=== PATIENT | female | born 1945 | race Caucasian/White ===

== ENCOUNTER 2018-10-22 13:07 | Emergency (ER) | payer MEDICARE, OTHER, SELFPAY ==
[~2018-10-22] VITALS: Ht 160 cm; Wt 45.1 kg
[2018-10-22 13:12] VITALS: BP 152/79
== END 2018-10-22 14:58 | disposition home or self-care (01) ==
LOC: ED 14:24
DX: L89.892 Pressure ulcer of other site, stage 2 (principal); F17.200 Nicotine dependence, unspecified, uncomplicated
CPT/HCPCS: 82962; 99283

== ENCOUNTER 2019-06-23 15:31 | Inpatient (IN) | payer MEDICARE ==
[~2019-06-23] VITALS: Ht 157.5 cm; Wt 46.3 kg
[2019-06-23 16:17] LABS: MEAN CORPUSCULAR HEMOGLOBIN 25.6 pg (27.0-34.8); MEAN CORPUSCULAR HGB CONC 32.5 g/dL (32.4-35.8); MEAN PLATELET VOLUME 7.7 fL (7.4-10.4); PLATELET COUNT 834 x10^3/uL (130-400); RED BLOOD COUNT 6.01 x10^6/uL (3.82-5.3); RED CELL DISTRIBUTION WIDTH 15.6 % (9.6-15.2)
[2019-06-23 16:28] LABS: ALBUMIN 3.3 g/dL (3.4-5.0); ANION GAP 5 mmol/L (5-15); CALCIUM 9.2 mg/dL (8.5-10.1); CHLORIDE 106 mmol/L (98-107)
[2019-06-23 16:29] LABS: CREATININE 0.74 mg/dL (0.55-1.02)
[2019-06-23 17:09] LABS: BASOPHILS # (AUTO) 0.05 x10^3/uL (0-0.1); BASOPHILS % (AUTO) 0 % (0-1); EOSINOPHILS # (AUTO) 0.31 x10^3/uL (0-0.4); EOSINOPHILS % (AUTO) 2 % (1-7); LYMPHOCYTES % (AUTO) 12 % (22-44); MD SCAN; MONOCYTES # (AUTO) 0.68 x10^3/uL (0.2-0.8); MONOCYTES % (AUTO) 4 % (2-9); NEUTROPHILS # (AUTO) 15.85 x10^3/uL (1.8-6.8); NEUTROPHILS % (AUTO) 83 % (42-75)
--- NOTE | 2019-06-23 18:54 | NUR ---
FROM LOBBY TO ROOM. MD TO BEDSIDE AT THIS TIME FOR ASSESSMENT
[2019-06-23 19:09] LABS: HCT (SEDRATE) 47.5 % (34.6-47.8)
--- NOTE | 2019-06-23 19:11 | NUR ---
BREAK RN: PT PRESENTING TO ER FOR SORE BLACK IN COLOR ON LEFT OUTER FOOT THAT HAS BEEN THERE FOR MONTHS PER PT. ATTEMPTED TO TREAT AT HOME WITH NEOSPORIN, NOW WOUND IS BLACK IN COLOR. PT STS HARD TO WALK ON BUT DOESNT HURT WHEN NOT BEING TOUCHED. CONNECTED TO MONITORING, VSS. PIT ORDERS COMPLETED. ADDITIONAL ORDERS RECEIVED FOR MRI AND LABS. FAMILY AT BEDSIDE. CALL [facility] [email or web address] RE[facility]. AWAITING TESTING AT THIS TIME
--- NOTE | 2019-06-23 19:21 | NUR ---
BREAK RN: IV PLACED FOR MRI
--- NOTE | 2019-06-23 19:42 | NUR ---
PT TO MRI PER CART. REMAINS IN ROOM.
--- NOTE | 2019-06-23 19:53 | NUR ---
UNABLE TO COMPLETE MRI, PATIENT COULD NOT HOLD STILL. PT REQUESTING TO GO HOME. RN INFORMED HER THAT SHE HAS THE RIGHT TO MAKE ANY HEALTH CARE DECISION SHE WANTS, BUT TO PLEASE SPEAK TO THE DOCTOR BEFORE SHE MAKES UP HER MIND. PT WILL SPEAK TO THE DOCTOR.
[2019-06-23] MEDS ORDERED: LORazepam 2 MG/ML, 1ML ONE (19:57)
[2019-06-23] MEDS ORDERED: LORazepam 2 MG/ML, 1ML IVPush ONE (20:00)
--- NOTE | 2019-06-23 21:14 | NUR ---
PLANNING ENGINEER HERE TO TAKE PATIENT TO MRI FOR SCAN. PT MOVING AROUND IN BED. TECH INFORMED RN THAT SHE HAS ONE CHANCE, AND IF THE PATIENT CAN'T HOLD STILL, SHE WILL CANCEL THE TEST AND SHE IS GOING HOME. RN INFORMED PLANNING ENGINEER THAT ADDITIONAL ATIVAN CAN BE GIVEN TO HELP PATIENT RELAX. IV MEDICATIONS ADMINISTERED BY MARGARITA ESPINOSA. PT INSTRUCTED THAT SHE NEEDS TO HOLD STILL FOR THIS TEST, SO CORRECT DIAGNOSIS CAN BE MADE REGARDING HER FOOT. NOT AT BEDSIDE, HE HAS LEFT TO GET SOME FOOD.
--- NOTE | 2019-06-23 21:23 | NUR ---
PT RETURNED FROM MRI. UNABLE TO PERFORM TEST DUE TO PATIENT INABILITY TO REMAIN STILL AND FOLLOW INSTRUCTIONS. PT UNABLE TO FOLLOW THOUGHT PROCESS AND ANSWER QUESTIONS APPROPRIATELY, UNKNOWN IF THIS IS DUE TO MEDICATION, OR IF THIS IS PATIENT NORM. PT WILL ANSWER QUESTIONS APPROPRIATELY AT TIMES, BUT NOW THAT IS NOT HERE TO SPEAK FOR PATIENT, IT IS UNKNOWN PATIENT'S TRUE BASELINE. INFORMED OF INABILITY TO PERFORM TEST, ORDER FOR HALDOL AND ATTEMPT MRI A 3RD TIME. MARGARITA ESPINOSA RUNNING OVER TO MRI TO INFORM MOTOR VEHICLE TECHNICIAN TECH ABOUT MD NEW ORDER.
[2019-06-23] MEDS ORDERED: HALOPERIDOL 5 MG/ML ONE ×2 (21:28→21:34)
[2019-06-23] MEDS ORDERED: HALOPERIDOL 5 MG/ML IV ONE (21:30)
[2019-06-23] MEDS ORDERED: VANCOMYCIN PER PHARMACY MC PRN ×2 (22:00→23:00)
[2019-06-23] MEDS ORDERED: VANCOMYCIN 900 MG in SODIUM CHLORIDE 0.9% 100 ML IV ONE (22:00)
[2019-06-23] MEDS ORDERED: AMPICILLIN/SULBACTAM 3 GM in SODIUM CHLORIDE 0.9% 100 ML IV ONE (22:00)
--- NOTE | 2019-06-23 22:00 | NUR ---
REPORT RECEIVED FROM JESÚS GONZÁLES AND JESÚS AVILA. ASSUMED CARE OF PT. PT RESTING ON GURNEY, CONFUSED. ABLE TO FOLLOW SIMPLE COMMANDS. ALL VITALS STABLE. REPORT BEING CALLED AT THIS TIME. WILL CONTINUE TO MONITOR.
--- NOTE | 2019-06-23 22:07 | NUR ---
PT SITTING ON EDGE OF BED, BLEEDING FROM IV SITE, PATIENT HAS PULLED OUT IV AND REMOVED ALL MONITORING EQUIPMENT. MONITORING EQUIPMENT REPLACED, IV REPLACED AND IV HALDOL GIVEN. REPORT TO ARELY ESPINOSA ON FLOOR, PT DISCHARGED TO FLOOR PER TECH. AT PATIENT BEDSIDE.
[2019-06-23 22:47] VITALS: BP 187/84
[2019-06-23] MEDS ORDERED: MULT-658 PO (22:47)
[2019-06-23] MEDS ORDERED: POLYETHYLENE GLYCOL 17 GM PACKET PO PRN (23:00)
[2019-06-23] MEDS ORDERED: ONDANSETRON ODT 4 MG PO PRN (23:00)
[2019-06-23] MEDS ORDERED: BISACODYL 10 MG SUPP PR PRN (23:00)
[2019-06-23] MEDS ORDERED: MULTIVITAMIN 1 TABLET PO SCH (23:00)
[2019-06-23] MEDS ORDERED: PHARMACOKINETIC CONSULTATION MC ONE (23:30)
[2019-06-23] MEDS ORDERED: PHARMACOKINETIC MONITORING MC PRN (23:30)
[2019-06-24 00:18] VITALS: BP 187/91
[2019-06-24] MEDS: HEPARIN 5,000 UNITS/ML, 1ML SQ SCH ×3 (00:28→16:54)
[2019-06-24] MEDS: ACETAMINOPHEN 325 MG TABLET PO PRN ×2 (00:28→21:45)
[2019-06-24] MEDS: HALOPERIDOL 5 MG TABLET PO PRN ×4 (00:28→22:03)
[2019-06-24] MEDS: NICOTINE 7 MG/24 HR PATCH.TD24 TD SCH ×2 (00:29→22:04)
[2019-06-24 01:24] VITALS: BP 162/84
[2019-06-24] MEDS: AMPICILLIN/SULBACTAM 3 GM in SODIUM CHLORIDE 0.9% 100 ML IV SCH ×2 (01:40→08:00)
[2019-06-24] MEDS: NS + 20MEQ KCL 1,000 ML IV SCH ×3 (02:44→21:36)
[2019-06-24 05:57] LABS: BASOPHILS # (AUTO) 0.15 x10^3/uL (0-0.1); BASOPHILS % (AUTO) 1 % (0-1); EOSINOPHILS # (AUTO) 0.35 x10^3/uL (0-0.4); EOSINOPHILS % (AUTO) 2 % (1-7); LYMPHOCYTES # (AUTO) 2.39 x10^3/uL (1-3.4); LYMPHOCYTES % (AUTO) 16 % (22-44); MD NO; MEAN CORPUSCULAR HEMOGLOBIN 25.4 pg (27.0-34.8); MEAN CORPUSCULAR HGB CONC 32.7 g/dL (32.4-35.8); MEAN CORPUSCULAR VOLUME 77.8 fL (80-100); MEAN PLATELET VOLUME 7.7 fL (7.4-10.4); MONOCYTES # (AUTO) 0.82 x10^3/uL (0.2-0.8); MONOCYTES % (AUTO) 6 % (2-9); NEUTROPHILS # (AUTO) 11.27 x10^3/uL (1.8-6.8); NEUTROPHILS % (AUTO) 75 % (42-75); PLATELET COUNT 642 x10^3/uL (130-400); RED BLOOD COUNT 5.85 x10^6/uL (3.82-5.3); RED CELL DISTRIBUTION WIDTH 15.7 % (9.6-15.2)
[2019-06-24 06:10] LABS: ANION GAP 5 mmol/L (5-15); CALCIUM 8.7 mg/dL (8.5-10.1); CHLORIDE 111 mmol/L (98-107); CREATININE 0.52 mg/dL (0.55-1.02)
[2019-06-24 07:44] VITALS: BP 175/94
[2019-06-24] MEDS: LISINOPRIL 10 MG TABLET PO SCH ×2 (08:01→21:36)
[2019-06-24] MEDS: SENNA/DOCUSATE TABLET PO SCH (08:01)
[2019-06-24 08:51] VITALS: BP 167/83
[2019-06-24] MEDS ORDERED: NICOTINE 14MG/24 HR PATCH.TD24 TD ONE (12:30)
[2019-06-24 15:50] VITALS: BP 171/77
[2019-06-24] MEDS: PIPERACILLIN/TAZO/PMX 3.375GM 50 ML IV SCH ×2 (16:54→22:02)
[2019-06-24] MEDS: VANCOMYCIN 800 MG in SODIUM CHLORIDE 0.9% 100 ML IV SCH (16:54)
[2019-06-24 19:14] VITALS: BP 166/95
[2019-06-25] MEDS: HEPARIN 5,000 UNITS/ML, 1ML SQ SCH ×3 (00:42→17:29)
[2019-06-25 02:00] VITALS: BP 138/74
[2019-06-25] MEDS: PIPERACILLIN/TAZO/PMX 3.375GM 50 ML IV SCH ×4 (02:38→21:21)
[2019-06-25 05:31] LABS: BASOPHILS % (AUTO) 1 % (0-1); EOSINOPHILS # (AUTO) 0.23 x10^3/uL (0-0.4); EOSINOPHILS % (AUTO) 2 % (1-7); LYMPHOCYTES # (AUTO) 1.64 x10^3/uL (1-3.4); LYMPHOCYTES % (AUTO) 11 % (22-44); MD NO; MEAN CORPUSCULAR HEMOGLOBIN 25.5 pg (27.0-34.8); MEAN CORPUSCULAR HGB CONC 32.7 g/dL (32.4-35.8); MEAN PLATELET VOLUME 8.4 fL (7.4-10.4); MONOCYTES # (AUTO) 0.66 x10^3/uL (0.2-0.8); MONOCYTES % (AUTO) 5 % (2-9); NEUTROPHILS % (AUTO) 82 % (42-75); PLATELET COUNT 765 x10^3/uL (130-400); RED BLOOD COUNT 5.82 x10^6/uL (3.82-5.3); RED CELL DISTRIBUTION WIDTH 15.6 % (9.6-15.2)
[2019-06-25] MEDS: NS + 20MEQ KCL 1,000 ML IV SCH (05:33)
[2019-06-25 05:47] LABS: ANION GAP 5 mmol/L (5-15); CHLORIDE 109 mmol/L (98-107)
[2019-06-25] MEDS: ACETAMINOPHEN 325 MG TABLET PO PRN ×2 (08:15→20:49)
[2019-06-25] MEDS: SENNA/DOCUSATE TABLET PO SCH (08:15)
[2019-06-25 08:16] VITALS: BP 180/84
[2019-06-25] MEDS: LISINOPRIL 10 MG TABLET PO SCH ×2 (08:16→20:49)
[2019-06-25 10:00] VITALS: BP 163/92
[2019-06-25 14:59] VITALS: BP 149/82
[2019-06-25] MEDS: VANCOMYCIN 800 MG in SODIUM CHLORIDE 0.9% 100 ML IV SCH (17:41)
[2019-06-25 20:33] VITALS: BP 179/99
[2019-06-25] MEDS: HALOPERIDOL 5 MG TABLET PO PRN (20:49)
[2019-06-25] MEDS: hydrALAzine 20 MG/ML, 1ML IVPush PRN (21:21)
[2019-06-25 23:00] VITALS: BP 170/81
[2019-06-26] MEDS: PIPERACILLIN/TAZO/PMX 3.375GM 50 ML IV SCH ×2 (04:01→10:33)
[2019-06-26 06:00] LABS: BASOPHILS # (AUTO) 0.21 x10^3/uL (0-0.1); BASOPHILS % (AUTO) 1 % (0-1); EOSINOPHILS # (AUTO) 0.25 x10^3/uL (0-0.4); EOSINOPHILS % (AUTO) 2 % (1-7); LYMPHOCYTES # (AUTO) 1.56 x10^3/uL (1-3.4); LYMPHOCYTES % (AUTO) 11 % (22-44); MD NO; MEAN CORPUSCULAR HEMOGLOBIN 25.7 pg (27.0-34.8); MEAN CORPUSCULAR HGB CONC 33.2 g/dL (32.4-35.8); MEAN CORPUSCULAR VOLUME 77.3 fL (80-100); MEAN PLATELET VOLUME 7.9 fL (7.4-10.4); MONOCYTES # (AUTO) 0.51 x10^3/uL (0.2-0.8); MONOCYTES % (AUTO) 4 % (2-9); NEUTROPHILS # (AUTO) 12.21 x10^3/uL (1.8-6.8); NEUTROPHILS % (AUTO) 83 % (42-75); PLATELET COUNT 789 x10^3/uL (130-400); RED BLOOD COUNT 5.78 x10^6/uL (3.82-5.3); RED CELL DISTRIBUTION WIDTH 15.7 % (9.6-15.2)
[2019-06-26 06:12] LABS: ANION GAP 6 mmol/L (5-15); CALCIUM 8.9 mg/dL (8.5-10.1); CHLORIDE 108 mmol/L (98-107)
[2019-06-26 06:13] LABS: CREATININE 0.64 mg/dL (0.55-1.02)
[2019-06-26] MEDS: HEPARIN 5,000 UNITS/ML, 1ML SQ SCH ×3 (08:00→16:00)
[2019-06-26] MEDS: ACETAMINOPHEN 325 MG TABLET PO PRN ×2 (08:49→20:26)
[2019-06-26] MEDS: LISINOPRIL 10 MG TABLET PO SCH ×2 (08:50→20:26)
[2019-06-26] MEDS: SENNA/DOCUSATE TABLET PO SCH (08:50)
[2019-06-26 08:53] VITALS: BP 144/82
[2019-06-26] MEDS ORDERED: POTASSIUM CHLORIDE 10% 40 MEQ/30 ML UDC PO ONE (15:30)
[2019-06-26 15:51] VITALS: BP 122/78
[2019-06-26] MEDS: CEFTRIAXONE PMX 1GM/50ML 50 ML IV SCH (16:21)
[2019-06-26] MEDS: HALOPERIDOL 5 MG TABLET PO PRN (18:28)
[2019-06-26] MEDS ORDERED: GADOTERATE 7.5 MMOL/15 ML SYR ONE (19:14)
[2019-06-26 19:43] VITALS: BP 156/86
[2019-06-26] MEDS: KETOROLAC 30 MG/1 ML IVPush PRN (21:25)
[2019-06-26] MEDS: NICOTINE 7 MG/24 HR PATCH.TD24 TD SCH ×2 (23:00)
[2019-06-27 01:11] VITALS: BP 152/79
[2019-06-27 05:48] LABS: BASOPHILS # (AUTO) 0.17 x10^3/uL (0-0.1); BASOPHILS % (AUTO) 1 % (0-1); EOSINOPHILS # (AUTO) 0.42 x10^3/uL (0-0.4); EOSINOPHILS % (AUTO) 3 % (1-7); LYMPHOCYTES # (AUTO) 2.17 x10^3/uL (1-3.4); LYMPHOCYTES % (AUTO) 13 % (22-44); MD NO; MEAN CORPUSCULAR HEMOGLOBIN 25.7 pg (27.0-34.8); MEAN CORPUSCULAR HGB CONC 32.9 g/dL (32.4-35.8); MEAN PLATELET VOLUME 7.7 fL (7.4-10.4); MONOCYTES # (AUTO) 0.74 x10^3/uL (0.2-0.8); MONOCYTES % (AUTO) 4 % (2-9); NEUTROPHILS # (AUTO) 13.16 x10^3/uL (1.8-6.8); NEUTROPHILS % (AUTO) 79 % (42-75); PLATELET COUNT 879 x10^3/uL (130-400); RED BLOOD COUNT 5.59 x10^6/uL (3.82-5.3); RED CELL DISTRIBUTION WIDTH 15.7 % (9.6-15.2)
[2019-06-27 06:00] LABS: ANION GAP 6 mmol/L (5-15); CALCIUM 8.8 mg/dL (8.5-10.1); CHLORIDE 108 mmol/L (98-107); CREATININE 0.62 mg/dL (0.55-1.02)
[2019-06-27] MEDS: HEPARIN 5,000 UNITS/ML, 1ML SQ SCH ×3 (08:00→17:27)
[2019-06-27 09:11] VITALS: BP 138/80
[2019-06-27] MEDS: SENNA/DOCUSATE TABLET PO SCH (09:28)
[2019-06-27] MEDS: LISINOPRIL 10 MG TABLET PO SCH ×2 (09:28→21:31)
[2019-06-27] MEDS: ASPIRIN 81 MG TABLET CHEW PO SCH (09:28)
[2019-06-27 14:24] VITALS: BP 152/77
[2019-06-27] MEDS: KETOROLAC 30 MG/1 ML IVPush PRN (15:25)
[2019-06-27] MEDS: CEFTRIAXONE PMX 1GM/50ML 50 ML IV SCH (15:25)
[2019-06-27 19:11] VITALS: BP 151/85
[2019-06-27] MEDS ORDERED: CEFAZOLIN 2,000 MG in SODIUM CHLORIDE 0.9% 50 ML IV SCH (21:00)
[2019-06-27] MEDS: CEFAZOLIN PMX 2GM/50ML 50 ML IVPB SCH (21:30)
[2019-06-27] MEDS: metroNIDAZOLE 500 MG TABLET PO SCH (21:31)
[2019-06-27] MEDS: NICOTINE 7 MG/24 HR PATCH.TD24 TD SCH (23:00)
[2019-06-28 01:50] VITALS: BP 155/106
[2019-06-28] MEDS: KETOROLAC 30 MG/1 ML IVPush PRN ×3 (02:06→16:44)
[2019-06-28] MEDS: hydrALAzine 20 MG/ML, 1ML IVPush PRN (02:06)
[2019-06-28] MEDS: metroNIDAZOLE 500 MG TABLET PO SCH ×3 (04:40→20:59)
[2019-06-28] MEDS: CEFAZOLIN PMX 2GM/50ML 50 ML IVPB SCH ×3 (04:41→20:59)
[2019-06-28 06:46] LABS: CHOL/HDL RATIO 5.7; LDL/HDL RATIO 3.9 (0.5-3.0)
[2019-06-28 06:58] VITALS: BP 147/83
[2019-06-28] MEDS ORDERED: POTASSIUM CHLORIDE 20 MEQ PACKET PO ONE (09:00)
[2019-06-28] MEDS: HEPARIN 5,000 UNITS/ML, 1ML SQ SCH ×3 (09:02→16:44)
[2019-06-28] MEDS: ASPIRIN 81 MG TABLET CHEW PO SCH (09:02)
[2019-06-28] MEDS: LISINOPRIL 10 MG TABLET PO SCH ×2 (09:02→20:59)
[2019-06-28] MEDS: SENNA/DOCUSATE TABLET PO SCH (09:03)
[2019-06-28 12:41] VITALS: BP 158/78
[2019-06-28 19:09] VITALS: BP 151/77
[2019-06-28] MEDS: NICOTINE 7 MG/24 HR PATCH.TD24 TD SCH (22:18)
[2019-06-29] MEDS: HALOPERIDOL 5 MG TABLET PO PRN ×3 (00:19→22:43)
[2019-06-29] MEDS: KETOROLAC 30 MG/1 ML IVPush PRN ×4 (00:19→22:43)
[2019-06-29 00:58] VITALS: BP 158/83
[2019-06-29] MEDS: metroNIDAZOLE 500 MG TABLET PO SCH ×3 (04:33→20:52)
[2019-06-29] MEDS: CEFAZOLIN PMX 2GM/50ML 50 ML IVPB SCH ×3 (04:34→20:52)
[2019-06-29] MEDS ORDERED: OMNIPAQUE 350 MG/ML, 100ML BOTTLE ONE (05:57)
[2019-06-29 06:01] LABS: BASOPHILS # (AUTO) 0.06 x10^3/uL (0-0.1); BASOPHILS % (AUTO) 0 % (0-1); EOSINOPHILS # (AUTO) 0.31 x10^3/uL (0-0.4); EOSINOPHILS % (AUTO) 2 % (1-7); LYMPHOCYTES # (AUTO) 2.71 x10^3/uL (1-3.4); LYMPHOCYTES % (AUTO) 19 % (22-44); MD NO; MEAN CORPUSCULAR HEMOGLOBIN 25.5 pg (27.0-34.8); MEAN CORPUSCULAR HGB CONC 32.8 g/dL (32.4-35.8); MEAN CORPUSCULAR VOLUME 77.9 fL (80-100); MONOCYTES # (AUTO) 0.61 x10^3/uL (0.2-0.8); MONOCYTES % (AUTO) 4 % (2-9); NEUTROPHILS # (AUTO) 10.95 x10^3/uL (1.8-6.8); NEUTROPHILS % (AUTO) 75 % (42-75); PLATELET COUNT 928 x10^3/uL (130-400); RED CELL DISTRIBUTION WIDTH 15.6 % (9.6-15.2)
[2019-06-29 06:08] LABS: ALANINE AMINOTRANSFERASE 27 U/L (12-78); ALBUMIN 2.6 g/dL (3.4-5.0); ANION GAP 6 mmol/L (5-15); CALCIUM 8.9 mg/dL (8.5-10.1); CHLORIDE 108 mmol/L (98-107)
[2019-06-29 06:17] LABS: ALKALINE PHOSPHATASE 87 U/L (45-117); BILIRUBIN,TOTAL 0.3 mg/dL (0.2-1.0); CREATININE 0.73 mg/dL (0.55-1.02); TOTAL PROTEIN 6.6 g/dL (6.4-8.2)
[2019-06-29 06:30] LABS: HCT (SEDRATE) 42.8 % (34.6-47.8)
[2019-06-29 07:42] VITALS: BP 143/74
[2019-06-29] MEDS: SENNA/DOCUSATE TABLET PO SCH (10:16)
[2019-06-29] MEDS: ASPIRIN 81 MG TABLET CHEW PO SCH (10:16)
[2019-06-29] MEDS: HEPARIN 5,000 UNITS/ML, 1ML SQ SCH ×3 (10:16→16:00)
[2019-06-29] MEDS: LISINOPRIL 10 MG TABLET PO SCH (10:17)
[2019-06-29] MEDS ORDERED: FLUMAZENIL 0.1 MG/1 ML, 5ML ONE (11:37)
[2019-06-29] MEDS ORDERED: MIDAZOLAM 1 MG/ML, 5ML ONE (11:37)
[2019-06-29] MEDS ORDERED: FENTANYL PF 100 MCG/2ML ONE ×2 (11:37)
[2019-06-29] MEDS ORDERED: NALOXONE 1 MG/ML, 2ML ONE (11:38)
[2019-06-29] MEDS ORDERED: NITROGLYCERIN 5 MG/ML, 10ML ONE (11:38)
[2019-06-29] MEDS ORDERED: HEPARIN 1,000 UNITS/ML, 10ML ONE (11:38)
[2019-06-29] MEDS ORDERED: PROTAMINE SULFATE 10 MG/ML, 25ML ONE (11:39)
[2019-06-29] MEDS ORDERED: LIDOCAINE 1%, 10ML ONE (11:59)
[2019-06-29] MEDS ORDERED: hydrALAzine 20 MG/ML, 1ML ONE (12:49)
[2019-06-29 13:43] VITALS: BP 171/75
[2019-06-29 19:43] VITALS: BP 164/75
[2019-06-29] MEDS: LISINOPRIL 20 MG TABLET PO SCH (20:52)
[2019-06-29] MEDS: NICOTINE 7 MG/24 HR PATCH.TD24 TD SCH (22:51)
[2019-06-30 00:23] VITALS: BP 152/61
[2019-06-30] MEDS: metroNIDAZOLE 500 MG TABLET PO SCH ×3 (04:37→20:22)
[2019-06-30] MEDS: CEFAZOLIN PMX 2GM/50ML 50 ML IVPB SCH ×3 (04:37→20:22)
[2019-06-30] MEDS: HALOPERIDOL 5 MG TABLET PO PRN ×2 (05:47→22:57)
[2019-06-30] MEDS: KETOROLAC 30 MG/1 ML IVPush PRN ×2 (05:48→16:42)
[2019-06-30] MEDS: HEPARIN 5,000 UNITS/ML, 1ML SQ SCH ×4 (08:29→22:56)
[2019-06-30] MEDS: AMLODIPINE 10 MG TAB PO SCH (08:29)
[2019-06-30] MEDS: ASPIRIN 81 MG TABLET CHEW PO SCH (08:29)
[2019-06-30] MEDS: SENNA/DOCUSATE TABLET PO SCH (08:30)
[2019-06-30] MEDS: LISINOPRIL 20 MG TABLET PO SCH ×2 (08:30→20:22)
[2019-06-30 09:01] VITALS: BP 149/86
[2019-06-30] MEDS: ACETAMINOPHEN 325 MG TABLET PO PRN (09:05)
[2019-06-30 09:09] LABS: MEAN CORPUSCULAR HEMOGLOBIN 25.9 pg (27.0-34.8); MEAN CORPUSCULAR HGB CONC 32.8 g/dL (32.4-35.8); MEAN CORPUSCULAR VOLUME 78.9 fL (80-100); RED BLOOD COUNT 5.55 x10^6/uL (3.82-5.3); RED CELL DISTRIBUTION WIDTH 15.3 % (9.6-15.2)
[2019-06-30 09:12] LABS: ANION GAP 9 mmol/L (5-15); CHLORIDE 104 mmol/L (98-107); CREATININE 0.69 mg/dL (0.55-1.02)
[2019-06-30 09:34] LABS: BASOPHILS # (AUTO) 0.08 x10^3/uL (0-0.1); BASOPHILS % (AUTO) 0 % (0-1); EOSINOPHILS # (AUTO) 0.19 x10^3/uL (0-0.4); EOSINOPHILS % (AUTO) 1 % (1-7); LYMPHOCYTES # (AUTO) 1.99 x10^3/uL (1-3.4); LYMPHOCYTES % (AUTO) 11 % (22-44); MD SCAN; MEAN PLATELET VOLUME 7.7 fL (7.4-10.4); MONOCYTES # (AUTO) 0.72 x10^3/uL (0.2-0.8); MONOCYTES % (AUTO) 4 % (2-9); NEUTROPHILS # (AUTO) 15.89 x10^3/uL (1.8-6.8); NEUTROPHILS % (AUTO) 84 % (42-75)
[2019-06-30 09:39] LABS: PLATELET COUNT 1110 x10^3/uL (130-400)
[2019-06-30] MEDS ORDERED: POTASSIUM CHLORIDE 20 MEQ TAB.ER.PRT PO ONE (10:00)
[2019-06-30 14:35] VITALS: BP 115/67
[2019-06-30 18:56] VITALS: BP 154/82
[2019-06-30] MEDS: NICOTINE 7 MG/24 HR PATCH.TD24 TD SCH (22:57)
[2019-07-01 01:30] VITALS: BP 155/83
[2019-07-01] MEDS: metroNIDAZOLE 500 MG TABLET PO SCH ×3 (05:35→20:33)
[2019-07-01] MEDS: CEFAZOLIN PMX 2GM/50ML 50 ML IVPB SCH ×3 (05:35→21:14)
[2019-07-01] MEDS: HALOPERIDOL 5 MG TABLET PO PRN (05:35)
[2019-07-01 06:53] LABS: MEAN CORPUSCULAR HEMOGLOBIN 25.6 pg (27.0-34.8); MEAN CORPUSCULAR HGB CONC 32.7 g/dL (32.4-35.8); MEAN CORPUSCULAR VOLUME 78.3 fL (80-100); MEAN PLATELET VOLUME 7.6 fL (7.4-10.4); RED BLOOD COUNT 5.32 x10^6/uL (3.82-5.3); RED CELL DISTRIBUTION WIDTH 15.5 % (9.6-15.2)
[2019-07-01 07:01] LABS: PLATELET COUNT 1059 x10^3/uL (130-400)
[2019-07-01 07:05] LABS: CHLORIDE 105 mmol/L (98-107)
[2019-07-01 07:06] LABS: ANION GAP 7 mmol/L (5-15); CALCIUM 8.9 mg/dL (8.5-10.1); CREATININE 0.71 mg/dL (0.55-1.02)
[2019-07-01 07:20] LABS: BASOPHILS # (AUTO) 0.23 x10^3/uL (0-0.1); BASOPHILS % (AUTO) 1 % (0-1); EOSINOPHILS # (AUTO) 0.28 x10^3/uL (0-0.4); EOSINOPHILS % (AUTO) 2 % (1-7); LYMPHOCYTES # (AUTO) 1.65 x10^3/uL (1-3.4); LYMPHOCYTES % (AUTO) 10 % (22-44); MD SCAN; MONOCYTES # (AUTO) 0.54 x10^3/uL (0.2-0.8); MONOCYTES % (AUTO) 3 % (2-9); NEUTROPHILS # (AUTO) 13.65 x10^3/uL (1.8-6.8); NEUTROPHILS % (AUTO) 84 % (42-75)
[2019-07-01 07:40] VITALS: BP 150/76
[2019-07-01] MEDS: HEPARIN 5,000 UNITS/ML, 1ML SQ SCH ×3 (08:00→23:45)
[2019-07-01] MEDS: LISINOPRIL 20 MG TABLET PO SCH ×2 (09:11→20:33)
[2019-07-01] MEDS: AMLODIPINE 10 MG TAB PO SCH (09:11)
[2019-07-01] MEDS: SENNA/DOCUSATE TABLET PO SCH (09:11)
[2019-07-01] MEDS: ASPIRIN 81 MG TABLET CHEW PO SCH (09:17)
[2019-07-01 09:33] LABS: MEAN CORPUSCULAR HEMOGLOBIN 25.9 pg (27.0-34.8); MEAN CORPUSCULAR HGB CONC 33.2 g/dL (32.4-35.8); MEAN PLATELET VOLUME 7.5 fL (7.4-10.4); RED BLOOD COUNT 5.17 x10^6/uL (3.82-5.3); RED CELL DISTRIBUTION WIDTH 15.8 % (9.6-15.2)
[2019-07-01 09:37] LABS: PLATELET COUNT 1205 x10^3/uL (130-400)
[2019-07-01 10:24] LABS: BASOPHILS # (AUTO) 0.06 x10^3/uL (0-0.1); BASOPHILS % (AUTO) 0 % (0-1); EOSINOPHILS # (AUTO) 0.27 x10^3/uL (0-0.4); EOSINOPHILS % (AUTO) 1 % (1-7); LYMPHOCYTES % (AUTO) 12 % (22-44); MD SCAN; MONOCYTES % (AUTO) 4 % (2-9); NEUTROPHILS # (AUTO) 15.72 x10^3/uL (1.8-6.8); NEUTROPHILS % (AUTO) 83 % (42-75)
[2019-07-01 12:19] VITALS: BP 137/77
[2019-07-01] MEDS: ACETAMINOPHEN 325 MG TABLET PO PRN (16:03)
[2019-07-01] MEDS ORDERED: OXYcodone IR 5MG TABLET ONE (18:11)
[2019-07-01] MEDS: OXYcodone IR 5MG TABLET PO PRN (18:14)
[2019-07-01 19:28] VITALS: BP 145/81
[2019-07-01] MEDS: NICOTINE 7 MG/24 HR PATCH.TD24 TD SCH (23:46)
[2019-07-02] MEDS: OXYcodone IR 5MG TABLET PO PRN ×2 (00:03→21:02)
[2019-07-02 02:26] VITALS: BP 155/81
[2019-07-02] MEDS: metroNIDAZOLE 500 MG TABLET PO SCH ×3 (04:39→20:51)
[2019-07-02] MEDS: HALOPERIDOL 5 MG TABLET PO PRN (04:39)
[2019-07-02] MEDS: ACETAMINOPHEN 325 MG TABLET PO PRN (04:40)
[2019-07-02] MEDS: CEFAZOLIN PMX 2GM/50ML 50 ML IVPB SCH ×3 (04:45→23:19)
[2019-07-02 06:00] LABS: ANION GAP 7 mmol/L (5-15); CALCIUM 8.8 mg/dL (8.5-10.1); CHLORIDE 103 mmol/L (98-107)
[2019-07-02 06:01] LABS: CREATININE 0.62 mg/dL (0.55-1.02)
[2019-07-02 06:03] LABS: MEAN CORPUSCULAR HEMOGLOBIN 25.7 pg (27.0-34.8); MEAN CORPUSCULAR HGB CONC 32.6 g/dL (32.4-35.8); MEAN CORPUSCULAR VOLUME 78.8 fL (80-100); MEAN PLATELET VOLUME 7.8 fL (7.4-10.4); RED BLOOD COUNT 5.24 x10^6/uL (3.82-5.3); RED CELL DISTRIBUTION WIDTH 15.7 % (9.6-15.2)
[2019-07-02 06:05] LABS: PLATELET COUNT 1101 x10^3/uL (130-400)
[2019-07-02 07:02] LABS: BASOPHILS # (AUTO) 0.05 x10^3/uL (0-0.1); BASOPHILS % (AUTO) 0 % (0-1); EOSINOPHILS # (AUTO) 0.38 x10^3/uL (0-0.4); EOSINOPHILS % (AUTO) 2 % (1-7); LYMPHOCYTES # (AUTO) 2.17 x10^3/uL (1-3.4); LYMPHOCYTES % (AUTO) 12 % (22-44); MD SCAN; MONOCYTES % (AUTO) 5 % (2-9); NEUTROPHILS # (AUTO) 14.31 x10^3/uL (1.8-6.8); NEUTROPHILS % (AUTO) 81 % (42-75)
[2019-07-02 07:55] VITALS: BP 139/75
[2019-07-02] MEDS ORDERED: LABETALOL 200 MG TABLET ONE ×3 (08:49→16:39)
[2019-07-02] MEDS: SENNA/DOCUSATE TABLET PO SCH (08:56)
[2019-07-02] MEDS: AMLODIPINE 10 MG TAB PO SCH (08:56)
[2019-07-02] MEDS: HEPARIN 5,000 UNITS/ML, 1ML SQ SCH ×2 (08:56→16:45)
[2019-07-02] MEDS: ASPIRIN 81 MG TABLET CHEW PO SCH (08:56)
[2019-07-02] MEDS: LISINOPRIL 20 MG TABLET PO SCH ×2 (08:56→20:52)
[2019-07-02] MEDS: LABETALOL 100 MG TABLET PO SCH ×2 (08:57→16:46)
[2019-07-02 16:44] VITALS: BP 123/70
[2019-07-02 20:10] VITALS: BP 143/75
[2019-07-02] MEDS: NICOTINE 7 MG/24 HR PATCH.TD24 TD SCH (20:57)
[2019-07-03] MEDS: HEPARIN 5,000 UNITS/ML, 1ML SQ SCH ×3 (00:10→17:19)
[2019-07-03 01:15] VITALS: BP 149/70
[2019-07-03] MEDS: OXYcodone IR 5MG TABLET PO PRN ×4 (03:38→23:36)
[2019-07-03] MEDS: HALOPERIDOL 5 MG TABLET PO PRN (04:39)
[2019-07-03] MEDS: metroNIDAZOLE 500 MG TABLET PO SCH ×3 (04:39→20:06)
[2019-07-03 05:41] LABS: MEAN CORPUSCULAR HEMOGLOBIN 25.8 pg (27.0-34.8); MEAN CORPUSCULAR HGB CONC 32.9 g/dL (32.4-35.8); MEAN CORPUSCULAR VOLUME 78.3 fL (80-100); MEAN PLATELET VOLUME 7.7 fL (7.4-10.4); RED BLOOD COUNT 5.33 x10^6/uL (3.82-5.3); RED CELL DISTRIBUTION WIDTH 15.6 % (9.6-15.2)
[2019-07-03 05:44] LABS: PLATELET COUNT 1206 x10^3/uL (130-400)
[2019-07-03 05:44] LABS: CHLORIDE 105 mmol/L (98-107)
[2019-07-03 05:51] LABS: ANION GAP 7 mmol/L (5-15); CALCIUM 8.9 mg/dL (8.5-10.1); CREATININE 0.63 mg/dL (0.55-1.02)
[2019-07-03 06:14] LABS: BASOPHILS # (AUTO) 0.14 x10^3/uL (0-0.1); BASOPHILS % (AUTO) 1 % (0-1); EOSINOPHILS # (AUTO) 0.46 x10^3/uL (0-0.4); EOSINOPHILS % (AUTO) 3 % (1-7); LYMPHOCYTES # (AUTO) 2.23 x10^3/uL (1-3.4); LYMPHOCYTES % (AUTO) 12 % (22-44); MD SCAN; MONOCYTES # (AUTO) 0.63 x10^3/uL (0.2-0.8); MONOCYTES % (AUTO) 4 % (2-9); NEUTROPHILS # (AUTO) 14.71 x10^3/uL (1.8-6.8); NEUTROPHILS % (AUTO) 81 % (42-75)
[2019-07-03] MEDS ORDERED: POTASSIUM CHLORIDE 20 MEQ TAB.ER.PRT PO ONE (07:00)
[2019-07-03] MEDS: CEFAZOLIN PMX 2GM/50ML 50 ML IVPB SCH ×3 (07:29→23:35)
[2019-07-03 07:35] VITALS: BP 131/77
[2019-07-03] MEDS ORDERED: LABETALOL 200 MG TABLET ONE (09:03)
[2019-07-03] MEDS: LABETALOL 100 MG TABLET PO SCH ×2 (09:10→17:19)
[2019-07-03] MEDS: ASPIRIN 81 MG TABLET CHEW PO SCH (09:12)
[2019-07-03] MEDS: ACETAMINOPHEN 325 MG TABLET PO PRN (09:12)
[2019-07-03] MEDS: AMLODIPINE 10 MG TAB PO SCH (09:12)
[2019-07-03] MEDS: LISINOPRIL 20 MG TABLET PO SCH ×2 (09:12→20:06)
[2019-07-03] MEDS: SENNA/DOCUSATE TABLET PO SCH (09:13)
[2019-07-03 12:29] VITALS: BP 106/64
[2019-07-03 20:43] VITALS: BP 118/72
[2019-07-03] MEDS: NICOTINE 7 MG/24 HR PATCH.TD24 TD SCH (23:36)
[2019-07-04] MEDS: HEPARIN 5,000 UNITS/ML, 1ML SQ SCH ×3 (01:00→17:19)
[2019-07-04 02:20] VITALS: BP 118/77
[2019-07-04] MEDS: metroNIDAZOLE 500 MG TABLET PO SCH ×3 (04:19→20:38)
[2019-07-04] MEDS: OXYcodone IR 5MG TABLET PO PRN ×3 (04:19→17:27)
[2019-07-04 05:51] LABS: MEAN CORPUSCULAR HEMOGLOBIN 25.6 pg (27.0-34.8); MEAN CORPUSCULAR HGB CONC 32.8 g/dL (32.4-35.8); MEAN CORPUSCULAR VOLUME 78.1 fL (80-100); MEAN PLATELET VOLUME 7.8 fL (7.4-10.4); RED BLOOD COUNT 5.05 x10^6/uL (3.82-5.3); RED CELL DISTRIBUTION WIDTH 15.8 % (9.6-15.2)
[2019-07-04 05:58] LABS: PLATELET COUNT 1184 x10^3/uL (130-400)
[2019-07-04 06:01] LABS: ANION GAP 5 mmol/L (5-15); CALCIUM 9.1 mg/dL (8.5-10.1); CHLORIDE 105 mmol/L (98-107); CREATININE 0.57 mg/dL (0.55-1.02)
[2019-07-04 06:27] LABS: BASOPHILS # (AUTO) 0.05 x10^3/uL (0-0.1); BASOPHILS % (AUTO) 0 % (0-1); EOSINOPHILS # (AUTO) 0.41 x10^3/uL (0-0.4); EOSINOPHILS % (AUTO) 2 % (1-7); LYMPHOCYTES # (AUTO) 2.43 x10^3/uL (1-3.4); LYMPHOCYTES % (AUTO) 13 % (22-44); MD SCAN; MONOCYTES # (AUTO) 0.94 x10^3/uL (0.2-0.8); MONOCYTES % (AUTO) 5 % (2-9); NEUTROPHILS # (AUTO) 14.26 x10^3/uL (1.8-6.8); NEUTROPHILS % (AUTO) 79 % (42-75)
[2019-07-04 06:39] VITALS: BP 113/69
[2019-07-04] MEDS: CEFAZOLIN PMX 2GM/50ML 50 ML IVPB SCH ×3 (08:22→23:14)
[2019-07-04] MEDS: AMLODIPINE 10 MG TAB PO SCH (08:28)
[2019-07-04] MEDS: ASPIRIN 81 MG TABLET CHEW PO SCH (08:28)
[2019-07-04] MEDS: LABETALOL 100 MG TABLET PO SCH ×2 (08:28→17:20)
[2019-07-04] MEDS: LISINOPRIL 20 MG TABLET PO SCH ×2 (08:28→20:38)
[2019-07-04] MEDS: SENNA/DOCUSATE TABLET PO SCH (08:28)
[2019-07-04 12:57] VITALS: BP 107/68
[2019-07-04] MEDS: ACETAMINOPHEN 325 MG TABLET PO PRN (13:03)
[2019-07-04] MEDS ORDERED: LABETALOL 200 MG TABLET ONE (17:08)
[2019-07-04 19:25] VITALS: BP 114/69
[2019-07-04] MEDS: NICOTINE 7 MG/24 HR PATCH.TD24 TD SCH (23:14)
[2019-07-05 00:39] VITALS: BP 120/69
[2019-07-05] MEDS: HEPARIN 5,000 UNITS/ML, 1ML SQ SCH ×3 (01:00→18:00)
[2019-07-05] MEDS: metroNIDAZOLE 500 MG TABLET PO SCH ×3 (04:57→20:39)
[2019-07-05 06:25] LABS: ANION GAP 6 mmol/L (5-15); CALCIUM 8.9 mg/dL (8.5-10.1); CHLORIDE 104 mmol/L (98-107); CREATININE 0.54 mg/dL (0.55-1.02)
[2019-07-05 06:34] LABS: MEAN CORPUSCULAR HEMOGLOBIN 25.6 pg (27.0-34.8); MEAN CORPUSCULAR HGB CONC 32.5 g/dL (32.4-35.8); MEAN CORPUSCULAR VOLUME 78.7 fL (80-100); MEAN PLATELET VOLUME 7.9 fL (7.4-10.4); RED BLOOD COUNT 4.87 x10^6/uL (3.82-5.3)
[2019-07-05 06:38] LABS: PLATELET COUNT 1199 x10^3/uL (130-400)
[2019-07-05 06:48] VITALS: BP 157/83
[2019-07-05 06:55] LABS: BASOPHILS # (AUTO) 0.15 x10^3/uL (0-0.1); BASOPHILS % (AUTO) 1 % (0-1); EOSINOPHILS % (AUTO) 2 % (1-7); LYMPHOCYTES # (AUTO) 2.01 x10^3/uL (1-3.4); LYMPHOCYTES % (AUTO) 13 % (22-44); MD SCAN; MONOCYTES # (AUTO) 0.76 x10^3/uL (0.2-0.8); MONOCYTES % (AUTO) 5 % (2-9); NEUTROPHILS # (AUTO) 11.77 x10^3/uL (1.8-6.8); NEUTROPHILS % (AUTO) 79 % (42-75)
[2019-07-05] MEDS ORDERED: LABETALOL 200 MG TABLET ONE ×2 (07:57→17:56)
[2019-07-05] MEDS: LABETALOL 100 MG TABLET PO SCH ×2 (08:00→18:00)
[2019-07-05] MEDS: CEFAZOLIN PMX 2GM/50ML 50 ML IVPB SCH ×3 (08:08→23:40)
[2019-07-05] MEDS: ASPIRIN 81 MG TABLET CHEW PO SCH (08:08)
[2019-07-05] MEDS: SENNA/DOCUSATE TABLET PO SCH (08:08)
[2019-07-05] MEDS: LISINOPRIL 20 MG TABLET PO SCH ×2 (08:08→20:39)
[2019-07-05] MEDS: AMLODIPINE 10 MG TAB PO SCH (08:08)
[2019-07-05 14:37] VITALS: BP 127/67
[2019-07-05] MEDS: OXYcodone IR 5MG TABLET PO PRN ×2 (15:58→20:39)
[2019-07-05 20:30] VITALS: BP 120/65
[2019-07-05] MEDS: NICOTINE 7 MG/24 HR PATCH.TD24 TD SCH (23:39)
[2019-07-06 01:15] VITALS: BP 138/72
[2019-07-06] MEDS: HEPARIN 5,000 UNITS/ML, 1ML SQ SCH ×3 (01:29→17:09)
[2019-07-06] MEDS: OXYcodone IR 5MG TABLET PO PRN ×3 (01:29→17:09)
[2019-07-06] MEDS: ACETAMINOPHEN 325 MG TABLET PO PRN ×2 (03:14→20:23)
[2019-07-06] MEDS: metroNIDAZOLE 500 MG TABLET PO SCH ×3 (04:32→20:23)
[2019-07-06 05:55] LABS: ALBUMIN 2.8 g/dL (3.4-5.0); ANION GAP 7 mmol/L (5-15); CALCIUM 8.7 mg/dL (8.5-10.1); CHLORIDE 104 mmol/L (98-107)
[2019-07-06 06:03] LABS: ALANINE AMINOTRANSFERASE 8 U/L (12-78); ALKALINE PHOSPHATASE 67 U/L (45-117); BILIRUBIN,TOTAL 0.4 mg/dL (0.2-1.0); CREATININE 0.58 mg/dL (0.55-1.02); TOTAL PROTEIN 6.3 g/dL (6.4-8.2)
[2019-07-06 06:05] LABS: MEAN CORPUSCULAR HEMOGLOBIN 25.8 pg (27.0-34.8); MEAN CORPUSCULAR HGB CONC 32.9 g/dL (32.4-35.8); MEAN CORPUSCULAR VOLUME 78.4 fL (80-100); MEAN PLATELET VOLUME 7.9 fL (7.4-10.4); RED BLOOD COUNT 4.86 x10^6/uL (3.82-5.3); RED CELL DISTRIBUTION WIDTH 15.9 % (9.6-15.2)
[2019-07-06 06:12] LABS: HCT (SEDRATE) 38.1 % (34.6-47.8)
[2019-07-06 06:15] LABS: PLATELET COUNT 1186 x10^3/uL (130-400)
[2019-07-06 06:25] LABS: BASOPHILS # (AUTO) 0.18 x10^3/uL (0-0.1); BASOPHILS % (AUTO) 1 % (0-1); EOSINOPHILS # (AUTO) 0.34 x10^3/uL (0-0.4); EOSINOPHILS % (AUTO) 2 % (1-7); LYMPHOCYTES # (AUTO) 2.78 x10^3/uL (1-3.4); LYMPHOCYTES % (AUTO) 19 % (22-44); MD SCAN; MONOCYTES # (AUTO) 0.81 x10^3/uL (0.2-0.8); MONOCYTES % (AUTO) 6 % (2-9); NEUTROPHILS # (AUTO) 10.42 x10^3/uL (1.8-6.8); NEUTROPHILS % (AUTO) 72 % (42-75)
[2019-07-06] MEDS ORDERED: POTASSIUM CHLORIDE 20 MEQ in SODIUM CHLORIDE 0.9% 250 ML IV ONE (06:30)
[2019-07-06 06:39] VITALS: BP 113/63
[2019-07-06] MEDS: CEFAZOLIN PMX 2GM/50ML 50 ML IVPB SCH ×3 (07:25→23:38)
[2019-07-06] MEDS ORDERED: LABETALOL 200 MG TABLET ONE ×2 (07:42→17:03)
[2019-07-06] MEDS: LABETALOL 100 MG TABLET PO SCH ×2 (08:00→17:10)
[2019-07-06] MEDS: SENNA/DOCUSATE TABLET PO SCH (08:11)
[2019-07-06] MEDS: LISINOPRIL 20 MG TABLET PO SCH ×2 (08:11→20:26)
[2019-07-06] MEDS: ASPIRIN 81 MG TABLET CHEW PO SCH (08:11)
[2019-07-06] MEDS: AMLODIPINE 10 MG TAB PO SCH (08:11)
[2019-07-06 13:11] VITALS: BP 102/61
[2019-07-06 20:20] VITALS: BP 130/70
[2019-07-06 20:32] VITALS: BP 123/72
[2019-07-06] MEDS: NICOTINE 7 MG/24 HR PATCH.TD24 TD SCH (23:00)
[2019-07-07] MEDS: HEPARIN 5,000 UNITS/ML, 1ML SQ SCH ×3 (01:52→17:04)
[2019-07-07 01:59] VITALS: BP 137/71
[2019-07-07] MEDS: ACETAMINOPHEN 325 MG TABLET PO PRN (02:17)
[2019-07-07] MEDS: OXYcodone IR 5MG TABLET PO PRN ×4 (02:18→20:48)
[2019-07-07] MEDS: metroNIDAZOLE 500 MG TABLET PO SCH ×3 (05:13→20:47)
[2019-07-07] MEDS: CEFAZOLIN PMX 2GM/50ML 50 ML IVPB SCH ×3 (07:36→23:29)
[2019-07-07] MEDS: LABETALOL 100 MG TABLET PO SCH ×2 (08:00→17:03)
[2019-07-07] MEDS ORDERED: FENTANYL PF 250 MCG/5ML ONE (08:21)
[2019-07-07] MEDS ORDERED: ONDANSETRON ODT 8 MG PO PRN (09:00)
[2019-07-07] MEDS ORDERED: ACETAMINOPHEN 325 MG TABLET PO PRN (09:00)
[2019-07-07] MEDS ORDERED: PROMETHAZINE 25 MG/ML, 1ML IV PRN (09:00)
[2019-07-07] MEDS ORDERED: LABETALOL 5MG/ML, 20ML IV PRN (09:00)
[2019-07-07] MEDS ORDERED: ONDANSETRON 2MG/ML, 2ML IV PRN (09:00)
[2019-07-07] MEDS ORDERED: hydrALAzine 20 MG/ML, 1ML IV PRN (09:00)
[2019-07-07] MEDS: AMLODIPINE 10 MG TAB PO SCH (09:00)
[2019-07-07] MEDS: SENNA/DOCUSATE TABLET PO SCH (09:00)
[2019-07-07] MEDS ORDERED: PROMETHAZINE 25 MG SUPP PR PRN (09:00)
[2019-07-07] MEDS: LISINOPRIL 20 MG TABLET PO SCH ×2 (09:00→20:48)
[2019-07-07] MEDS: ASPIRIN 81 MG TABLET CHEW PO SCH (09:00)
[2019-07-07] MEDS ORDERED: OXYcodone 5 MG/5 ML ORAL.SOL UDC PO PRN (09:00)
[2019-07-07] MEDS ORDERED: NEOSTIGMINE 1 MG/ML, 10ML ONE (09:56)
[2019-07-07] MEDS ORDERED: PROPOFOL 10 MG/ML, 20ML ONE (09:56)
[2019-07-07] MEDS ORDERED: DEXAMETHASONE 4 MG/ML, 1ML ONE (09:56)
[2019-07-07] MEDS ORDERED: CEFAZOLIN 1,000 MG ONE (09:56)
[2019-07-07] MEDS ORDERED: ONDANSETRON 2MG/ML, 2ML ONE (09:56)
[2019-07-07] MEDS ORDERED: ROCURONIUM 10MG/ML,5ML ONE (09:56)
[2019-07-07] MEDS ORDERED: SUCCINYLCHOLINE 20 MG/ML, 10ML ONE (09:56)
[2019-07-07] MEDS ORDERED: GLYCOPYRROLATE 0.2MG/1ML, 5ML ONE (09:56)
[2019-07-07] MEDS ORDERED: FENTANYL PF 100 MCG/2ML ONE (10:19)
[2019-07-07] MEDS ORDERED: HYDROmorphone 1 MG/ML, 1ML INJ ONE ×2 (10:22→11:06)
[2019-07-07] MEDS: FENTANYL PF 100 MCG/2ML IV PRN ×2 (10:23→10:30)
[2019-07-07] MEDS: HYDROmorphone 2 MG/ML, 1ML IVPush PRN ×4 (10:50→11:30)
[2019-07-07] MEDS ORDERED: hydrALAzine 20 MG/ML, 1ML ONE (11:12)
[2019-07-07 13:31] VITALS: BP 129/77
[2019-07-07 18:49] VITALS: BP 152/66
[2019-07-07] MEDS: NICOTINE 7 MG/24 HR PATCH.TD24 TD SCH (23:00)
[2019-07-07 23:39] VITALS: BP 155/76
[2019-07-08] MEDS: ACETAMINOPHEN 325 MG TABLET PO PRN ×5 (00:32→22:33)
[2019-07-08] MEDS: OXYcodone IR 5MG TABLET PO PRN ×5 (00:32→22:34)
[2019-07-08] MEDS: HEPARIN 5,000 UNITS/ML, 1ML SQ SCH ×3 (00:33→17:10)
[2019-07-08] MEDS: HALOPERIDOL 5 MG TABLET PO PRN ×2 (01:10→22:33)
[2019-07-08 03:53] VITALS: BP 151/79
[2019-07-08] MEDS: metroNIDAZOLE 500 MG TABLET PO SCH ×3 (05:06→21:47)
[2019-07-08 06:05] LABS: MEAN CORPUSCULAR HEMOGLOBIN 25.6 pg (27.0-34.8); MEAN CORPUSCULAR HGB CONC 32.5 g/dL (32.4-35.8); MEAN CORPUSCULAR VOLUME 78.6 fL (80-100); MEAN PLATELET VOLUME 7.6 fL (7.4-10.4); RED BLOOD COUNT 4.86 x10^6/uL (3.82-5.3); RED CELL DISTRIBUTION WIDTH 16.5 % (9.6-15.2)
[2019-07-08 06:10] LABS: ANION GAP 10 mmol/L (5-15); CALCIUM 8.6 mg/dL (8.5-10.1); CHLORIDE 102 mmol/L (98-107)
[2019-07-08 06:13] LABS: CREATININE 0.55 mg/dL (0.55-1.02); PLATELET COUNT 1363 x10^3/uL (130-400)
[2019-07-08] MEDS ORDERED: POTASSIUM CHLORIDE 20 MEQ TAB.ER.PRT PO ONE (06:30)
[2019-07-08 06:50] VITALS: BP 143/71
[2019-07-08 06:50] LABS: BASOPHILS # (AUTO) 0.08 x10^3/uL (0-0.1); BASOPHILS % (AUTO) 0 % (0-1); EOSINOPHILS # (AUTO) 0.17 x10^3/uL (0-0.4); EOSINOPHILS % (AUTO) 1 % (1-7); LYMPHOCYTES # (AUTO) 2.82 x10^3/uL (1-3.4); LYMPHOCYTES % (AUTO) 15 % (22-44); MD SCAN; MONOCYTES # (AUTO) 1.05 x10^3/uL (0.2-0.8); MONOCYTES % (AUTO) 6 % (2-9); NEUTROPHILS # (AUTO) 14.92 x10^3/uL (1.8-6.8); NEUTROPHILS % (AUTO) 78 % (42-75)
[2019-07-08] MEDS: CEFAZOLIN PMX 2GM/50ML 50 ML IVPB SCH ×2 (08:18→15:52)
[2019-07-08] MEDS: ASPIRIN 81 MG TABLET CHEW PO SCH (08:19)
[2019-07-08] MEDS: AMLODIPINE 10 MG TAB PO SCH (08:19)
[2019-07-08] MEDS: LABETALOL 100 MG TABLET PO SCH ×2 (08:19→17:15)
[2019-07-08] MEDS: SENNA/DOCUSATE TABLET PO SCH (08:20)
[2019-07-08] MEDS: LISINOPRIL 20 MG TABLET PO SCH ×2 (08:20→21:47)
[2019-07-08] MEDS ORDERED: SODIUM CHLORIDE 0.9% 1,000ML IVBOLUS ONE (12:30)
[2019-07-08] MEDS ORDERED: OMNIPAQUE 350 MG/ML, 100ML BOTTLE ONE (14:02)
[2019-07-08 16:10] VITALS: BP 124/66
[2019-07-08 19:36] VITALS: BP 105/67
[2019-07-08 21:45] VITALS: BP 117/80
[2019-07-08] MEDS: NICOTINE 7 MG/24 HR PATCH.TD24 TD SCH (23:00)
[2019-07-09] MEDS: HEPARIN 5,000 UNITS/ML, 1ML SQ SCH ×3 (00:19→19:57)
[2019-07-09] MEDS: CEFAZOLIN PMX 2GM/50ML 50 ML IVPB SCH ×4 (00:19→23:44)
[2019-07-09] MEDS: ACETAMINOPHEN 325 MG TABLET PO PRN ×3 (02:48→20:05)
[2019-07-09] MEDS: OXYcodone IR 5MG TABLET PO PRN ×3 (02:48→20:05)
[2019-07-09 03:54] VITALS: BP 129/79
[2019-07-09] MEDS: metroNIDAZOLE 500 MG TABLET PO SCH ×3 (05:10→19:57)
[2019-07-09 06:08] LABS: ANION GAP 6 mmol/L (5-15); CALCIUM 8.4 mg/dL (8.5-10.1); CHLORIDE 105 mmol/L (98-107); CREATININE 0.39 mg/dL (0.55-1.02)
[2019-07-09 06:13] LABS: MEAN CORPUSCULAR HEMOGLOBIN 25.7 pg (27.0-34.8); MEAN CORPUSCULAR HGB CONC 32.8 g/dL (32.4-35.8); MEAN CORPUSCULAR VOLUME 78.4 fL (80-100); MEAN PLATELET VOLUME 7.7 fL (7.4-10.4); RED BLOOD COUNT 4.65 x10^6/uL (3.82-5.3); RED CELL DISTRIBUTION WIDTH 16.9 % (9.6-15.2)
[2019-07-09 06:17] LABS: PLATELET COUNT 1191 x10^3/uL (130-400)
[2019-07-09 06:51] LABS: BASOPHILS # (AUTO) 0.04 x10^3/uL (0-0.1); BASOPHILS % (AUTO) 0 % (0-1); EOSINOPHILS # (AUTO) 0.39 x10^3/uL (0-0.4); EOSINOPHILS % (AUTO) 3 % (1-7); LYMPHOCYTES # (AUTO) 1.89 x10^3/uL (1-3.4); LYMPHOCYTES % (AUTO) 13 % (22-44); MD SCAN; MONOCYTES % (AUTO) 6 % (2-9); NEUTROPHILS % (AUTO) 79 % (42-75)
[2019-07-09] MEDS: LABETALOL 100 MG TABLET PO SCH ×2 (09:12→19:57)
[2019-07-09] MEDS: ASPIRIN 81 MG TABLET CHEW PO SCH (09:12)
[2019-07-09] MEDS: AMLODIPINE 10 MG TAB PO SCH (09:12)
[2019-07-09] MEDS: LISINOPRIL 20 MG TABLET PO SCH ×2 (09:13→19:57)
[2019-07-09] MEDS: SENNA/DOCUSATE TABLET PO SCH (09:13)
[2019-07-09 09:16] VITALS: BP 154/84
[2019-07-09] MEDS ORDERED: QUETIAPINE 25MG TABLET PO SCH (11:30)
[2019-07-09 14:22] VITALS: BP 91/58
[2019-07-09] MEDS ORDERED: HALOPERIDOL 5 MG/ML IV SCH (16:00)
[2019-07-09] MEDS ORDERED: HALOPERIDOL 5 MG/ML IV PRN (19:00)
[2019-07-09 19:59] VITALS: BP 150/81
[2019-07-09] MEDS: NICOTINE 7 MG/24 HR PATCH.TD24 TD SCH (21:58)
[2019-07-09] MEDS ORDERED: ACETAMINOPHEN 325 MG TABLET PO PRN (23:00)
[2019-07-09] MEDS ORDERED: HALOPERIDOL 5 MG/ML IM PRN (23:00)
[2019-07-09] MEDS ORDERED: DIPHENHYDRAMINE 25 MG CAPSULE PO PRN (23:00)
[2019-07-10 03:44] VITALS: BP 153/81
[2019-07-10] MEDS: metroNIDAZOLE 500 MG TABLET PO SCH ×3 (04:25→20:35)
[2019-07-10] MEDS: HEPARIN 5,000 UNITS/ML, 1ML SQ SCH ×3 (04:26→20:35)
[2019-07-10] MEDS: SENNA/DOCUSATE TABLET PO SCH (07:50)
[2019-07-10 07:51] VITALS: BP 126/75
[2019-07-10] MEDS: CEPHALEXIN 500 MG CAPSULE PO SCH ×3 (09:11→20:35)
[2019-07-10] MEDS: POTASSIUM CHLORIDE 20 MEQ TAB.ER.PRT PO SCH (09:12)
[2019-07-10] MEDS: LISINOPRIL 20 MG TABLET PO SCH ×2 (09:12→20:35)
[2019-07-10] MEDS: LABETALOL 100 MG TABLET PO SCH ×2 (09:12→17:41)
[2019-07-10] MEDS: ASPIRIN 81 MG TABLET CHEW PO SCH (09:13)
[2019-07-10] MEDS: AMLODIPINE 10 MG TAB PO SCH (09:13)
[2019-07-10] MEDS ORDERED: OXYcodone 5 MG/5 ML ORAL.SOL UDC ONE (11:28)
[2019-07-10] MEDS: OXYcodone IR 5MG TABLET PO PRN ×2 (11:36→18:51)
[2019-07-10 12:38] VITALS: BP 121/68
[2019-07-10] MEDS ORDERED: GADOTERATE 5 MMOL/10 ML VIAL ONE (16:22)
[2019-07-10 17:36] VITALS: BP 118/75
[2019-07-10 19:36] VITALS: BP 129/85
[2019-07-10] MEDS: NICOTINE 7 MG/24 HR PATCH.TD24 TD SCH (23:00)
[2019-07-11 01:33] VITALS: BP 124/67
[2019-07-11] MEDS: metroNIDAZOLE 500 MG TABLET PO SCH ×3 (04:27→20:34)
[2019-07-11] MEDS: HEPARIN 5,000 UNITS/ML, 1ML SQ SCH ×3 (04:27→20:33)
[2019-07-11 07:40] VITALS: BP 114/74
[2019-07-11] MEDS: SENNA/DOCUSATE TABLET PO SCH (08:16)
[2019-07-11] MEDS: AMLODIPINE 10 MG TAB PO SCH (08:16)
[2019-07-11] MEDS: POTASSIUM CHLORIDE 20 MEQ TAB.ER.PRT PO SCH (08:16)
[2019-07-11] MEDS: LABETALOL 100 MG TABLET PO SCH ×2 (08:16→18:28)
[2019-07-11] MEDS: CEPHALEXIN 500 MG CAPSULE PO SCH ×3 (08:17→20:34)
[2019-07-11] MEDS: ASPIRIN 81 MG TABLET CHEW PO SCH (08:17)
[2019-07-11] MEDS: LISINOPRIL 20 MG TABLET PO SCH ×2 (08:17→20:34)
[2019-07-11 10:16] LABS: MEAN CORPUSCULAR HEMOGLOBIN 25.8 pg (27.0-34.8); MEAN CORPUSCULAR HGB CONC 32.1 g/dL (32.4-35.8); MEAN CORPUSCULAR VOLUME 80.4 fL (80-100); RED BLOOD COUNT 4.83 x10^6/uL (3.82-5.3); RED CELL DISTRIBUTION WIDTH 17.2 % (9.6-15.2)
[2019-07-11 10:20] LABS: ANION GAP 7 mmol/L (5-15); CALCIUM 8.3 mg/dL (8.5-10.1); CHLORIDE 105 mmol/L (98-107)
[2019-07-11 11:39] LABS: BASOPHILS # (AUTO) 0.06 x10^3/uL (0-0.1); BASOPHILS % (AUTO) 1 % (0-1); EOSINOPHILS # (AUTO) 0.28 x10^3/uL (0-0.4); EOSINOPHILS % (AUTO) 2 % (1-7); LYMPHOCYTES # (AUTO) 1.64 x10^3/uL (1-3.4); LYMPHOCYTES % (AUTO) 13 % (22-44); MD SCAN; MEAN PLATELET VOLUME 7.9 fL (7.4-10.4); MONOCYTES # (AUTO) 0.63 x10^3/uL (0.2-0.8); MONOCYTES % (AUTO) 5 % (2-9); NEUTROPHILS # (AUTO) 9.65 x10^3/uL (1.8-6.8); NEUTROPHILS % (AUTO) 79 % (42-75)
[2019-07-11 11:42] LABS: PLATELET COUNT 1230 x10^3/uL (130-400)
[2019-07-11 12:34] VITALS: BP 100/63
[2019-07-11 19:42] VITALS: BP 100/67
[2019-07-11] MEDS: NICOTINE 7 MG/24 HR PATCH.TD24 TD SCH (23:00)
[2019-07-12 03:25] VITALS: BP 116/73
[2019-07-12] MEDS: metroNIDAZOLE 500 MG TABLET PO SCH ×3 (04:25→21:08)
[2019-07-12] MEDS: HEPARIN 5,000 UNITS/ML, 1ML SQ SCH ×3 (04:25→21:08)
[2019-07-12 06:34] VITALS: BP 109/56
[2019-07-12] MEDS: CEPHALEXIN 500 MG CAPSULE PO SCH ×3 (09:11→21:08)
[2019-07-12] MEDS: OXYcodone IR 5MG TABLET PO PRN ×2 (09:11→21:15)
[2019-07-12] MEDS: LABETALOL 100 MG TABLET PO SCH ×2 (09:12→18:00)
[2019-07-12] MEDS: LISINOPRIL 20 MG TABLET PO SCH ×2 (09:12→21:08)
[2019-07-12] MEDS: POTASSIUM CHLORIDE 20 MEQ TAB.ER.PRT PO SCH (09:12)
[2019-07-12] MEDS: SENNA/DOCUSATE TABLET PO SCH (09:12)
[2019-07-12] MEDS: AMLODIPINE 10 MG TAB PO SCH (09:12)
[2019-07-12] MEDS: ASPIRIN 81 MG TABLET CHEW PO SCH (09:12)
[2019-07-12 12:45] VITALS: BP 100/65
[2019-07-12 19:27] VITALS: BP 109/76
[2019-07-12] MEDS: NICOTINE 7 MG/24 HR PATCH.TD24 TD SCH (22:42)
[2019-07-13 00:49] VITALS: BP 122/74
[2019-07-13] MEDS: HEPARIN 5,000 UNITS/ML, 1ML SQ SCH ×3 (04:06→20:16)
[2019-07-13] MEDS: metroNIDAZOLE 500 MG TABLET PO SCH ×2 (04:06→12:35)
[2019-07-13] MEDS: OXYcodone IR 5MG TABLET PO PRN ×2 (04:07→20:17)
[2019-07-13 07:40] VITALS: BP 130/77
[2019-07-13] MEDS: ASPIRIN 81 MG TABLET CHEW PO SCH (09:33)
[2019-07-13] MEDS: SENNA/DOCUSATE TABLET PO SCH (09:33)
[2019-07-13] MEDS: POTASSIUM CHLORIDE 20 MEQ TAB.ER.PRT PO SCH (09:33)
[2019-07-13] MEDS: CEPHALEXIN 500 MG CAPSULE PO SCH (09:34)
[2019-07-13] MEDS: LABETALOL 100 MG TABLET PO SCH ×2 (09:34→17:37)
[2019-07-13] MEDS: AMLODIPINE 10 MG TAB PO SCH (09:34)
[2019-07-13] MEDS: LISINOPRIL 20 MG TABLET PO SCH ×3 (09:35→20:19)
[2019-07-13 13:29] VITALS: BP 100/61
[2019-07-13 18:47] VITALS: BP 99/64
[2019-07-13] MEDS: NICOTINE 7 MG/24 HR PATCH.TD24 TD SCH (22:18)
[2019-07-14 01:20] VITALS: BP 128/67
[2019-07-14] MEDS: HEPARIN 5,000 UNITS/ML, 1ML SQ SCH ×2 (04:20→12:00)
[2019-07-14] MEDS: OXYcodone IR 5MG TABLET PO PRN ×2 (04:25→15:48)
[2019-07-14 07:15] VITALS: BP 111/73
[2019-07-14] MEDS: SENNA/DOCUSATE TABLET PO SCH (09:00)
[2019-07-14] MEDS ORDERED: AMLODIPINE 5 MG TABLET PO SCH (09:00)
[2019-07-14] MEDS: LISINOPRIL 20 MG TABLET PO SCH (10:27)
[2019-07-14] MEDS: LABETALOL 100 MG TABLET PO SCH (10:28)
[2019-07-14] MEDS: ASPIRIN 81 MG TABLET CHEW PO SCH (10:29)
[2019-07-14 13:18] VITALS: BP 95/59
[2019-07-14] MEDS ORDERED: LISI-170 PO (14:49)
[2019-07-14] MEDS ORDERED: ASPI-515 PO (14:49)
[2019-07-14] MEDS ORDERED: ACET-1600 PO (14:49)
[2019-07-14] MEDS ORDERED: SENN-193 PO (14:49)
[2019-07-14] MEDS ORDERED: NICO-485 TD (14:49)
[2019-07-14] MEDS ORDERED: OXYC5TAB3 PO (14:55)
== END 2019-07-14 16:55 | DRG 853 ==
LOC: ED 22:01 → 3N 22:30 → 4NE 07-07 12:06 → 4EST 07-14 12:27 → 4NE 07-14 12:27
PROVIDERS: ADMIT Internal Medicine; ATTEND Hospitalist
PROC: B41D1ZZ Fluoroscopy of Aorta and Bilateral Lower Extremity Arteries using Low Osmolar Contrast (ICD-10-PCS; principal; 2019-06-29)
PROC: 047N3ZZ Dilation of Left Popliteal Artery, Percutaneous Approach (ICD-10-PCS; 2019-06-29)
PROC: 047L3ZZ Dilation of Left Femoral Artery, Percutaneous Approach (ICD-10-PCS; 2019-06-29)
PROC: 0Y6J0Z1 Detachment at Left Lower Leg, High, Open Approach (ICD-10-PCS; 2019-07-07)
DX: A41.9 Sepsis, unspecified organism (principal); E43 Unspecified severe protein-calorie malnutrition; I96 Gangrene, not elsewhere classified; L03.116 Cellulitis of left lower limb; Z68.1 Body mass index [BMI] 19.9 or less, adult; E87.1 Hypo-osmolality and hyponatremia; M86.8X6 Other osteomyelitis, lower leg; C23 Malignant neoplasm of gallbladder; F03.90 Unspecified dementia, unspecified severity, without behavioral disturbance, psychotic disturbance, mood disturbance, and anxiety; E87.6 Hypokalemia; L97.529 Non-pressure chronic ulcer of other part of left foot with unspecified severity; B95.61 Methicillin susceptible Staphylococcus aureus infection as the cause of diseases classified elsewhere; J44.9 Chronic obstructive pulmonary disease, unspecified; I77.1 Stricture of artery; F12.90 Cannabis use, unspecified, uncomplicated; F17.200 Nicotine dependence, unspecified, uncomplicated; I10 Essential (primary) hypertension; K82.9 Disease of gallbladder, unspecified; Z53.20 Procedure and treatment not carried out because of patient's decision for unspecified reasons; Z82.49 Family history of ischemic heart disease and other diseases of the circulatory system; Z98.61 Coronary angioplasty status
CPT/HCPCS: 36415; 37224; 71260; 74178; 74183; 75635; 75710; 76705; 80048; 80053; 80061; 82040; 82378; 82728; 83036; 83540; 83550; 83735; 85025; 85651; 86140; 86301; 87040; 87070; 87077; 87147; 87186; 87205; 88307; 88311; 93922; 93925; 96374; 96375; 99156; 99157; 99285; A9575; C1725; C1729; G0378; J0295; J0690; J0696; J1100; J1170; J1644; J1885; J2250; J2405; J2543; J2704; J2710; J2720; J3010; J3370; J3480; Q0162; Q9967; 92523-GN; C1760; C1769; C1894; J0330; J0360; J1630; J2060; J2310; J7030; J7050; Q0163